=== PATIENT | male | born 1990 | race Caucasian/White ===

== ENCOUNTER 2017-04-19 19:07 | Emergency (ER) | payer MEDICAID, OTHER ==
[~2017-04-19] VITALS: Ht 182.9 cm; Wt 91.0 kg
[~2017-04-19 19:07] MED LIST: ACYC400T2 PO; ACYC800T57 PO; GABA300C16 PO; IBUP-1542 PO; LACR35O OP; PRED20TA PO; PRED50TA PO; TRAM-40 PO; TRAM50TA2 PO
[2017-04-19 19:13] VITALS: Ht 182.9 cm; Wt 91.0 kg
[2017-04-19] MEDS ORDERED: ACETAMINOPHEN 500 MG TAB PO STA (21:19)
[2017-04-19 21:42] LABS: ADD SCAN DIFF NO
[2017-04-19 21:55] LABS: ADD UMIC NO; UR BILIRUBIN (Dip) NEGATIVE (NEGATIVE); UR BLOOD (Dip) NEGATIVE (NEGATIVE); UR CLARITY CLEAR (CLEAR); UR COLOR YELLOW (YELLOW); UR GLUCOSE (Dip) NEGATIVE (NEGATIVE); UR KETONES (Dip) NEGATIVE (NEGATIVE); UR LEUKOCYTE ESTERASE (Dip) NEGATIVE (NEGATIVE); UR NITRITE (Dip) NEGATIVE (NEGATIVE); UR TOTAL PROTEIN (Dip) NEGATIVE (NEGATIVE); UR UROBILINOGEN (Dip) 0.2 E.U./dL (0.1-1.0)
[2017-04-19 22:00] LABS: BASOPHIL # 0.1 10^3/ul (0.0-0.1); BASOPHILS % 0.3 % (0.0-2.0); HEMATOCRIT 41.8 % (42.0-52.0); HEMOGLOBIN 15.2 g/dl (14.0-18.0); LYMPHOCYTES # 0.8 10^3/ul (0.8-2.9); LYMPHOCYTES % 3.9 % (15.0-51.0); MEAN CORPUSCULAR HEMOGLOBIN 30.4 pg (29.0-33.0); MEAN CORPUSCULAR HGB CONC 36.4 g/dl (32.0-37.0); MEAN CORPUSCULAR VOLUME 83.6 fl (82.0-101.0); MEAN PLATELET VOLUME 11.1 fl (7.4-10.4); MONOCYTE # 0.9 10^3/ul (0.3-0.9); MONOCYTES % 4.7 % (0.0-11.0); NEUTROPHIL # 17.8 10^3/ul (1.6-7.5); NEUTROPHILS % 90.5 % (39.0-77.0); PLATELET COUNT 237 10^3/UL (140-415); RED CELL DISTRIBUTION WIDTH 12.1 % (11.5-14.5); WHITE BLOOD COUNT 19.6 10^3/ul (4.8-10.8)
[2017-04-19] MEDS ORDERED: SOD CHLORIDE 0.9% 1,000 ML IV ONE (22:00)
[2017-04-19 22:03] LABS: ALBUMIN 5.4 g/dl (3.3-4.9); ALBUMIN/GLOBULIN RATIO 1.86; BILIRUBIN,INDIRECT 1.5 mg/dl (0-1.1); BILIRUBIN,TOTAL 1.5 mg/dl (0.2-1.3); CALCIUM 9.6 mg/dl (8.4-10.2); CREATININE 1.28 mg/dl (0.61-1.24); POTASSIUM 3.7 mmol/L (3.5-5.1); TOTAL PROTEIN 8.3 g/dl (6.1-8.1)
--- NOTE | 2017-04-19 22:18 | ERD ---
ER Documentation Chief Complaint Date/Time DATE: 04/19/17 TIME: 22:15 Chief Complaint FEVER WITH BODY ACHES AND SORE THROAT, POOR APPETITE STARTING TODAY HPI This is a 26-year-old male presents to the emergency room for evaluation of fever, body aches and sore throat. Patient states he has had a poor appetite over the past 2 days. He has not taken any medication and came to the ER for evaluation. He denies any cough, or any chills or any nausea vomiting or diarrhea associated with his symptoms. The patient denies any previous medical conditions denies any recent travel. ROS All systems reviewed and are negative except as per history of present illness. Medications Home Meds Discontinued Scripts Tramadol Hcl* (Ultram*) 50 Mg Tablet, 50 MG PO Q6H Y for PAIN, #20 TAB Prov:PARMINDER ZACARIAS PA-C 10/02/16 Acyclovir* (Acyclovir*) 400 Mg Tablet, 400 MG PO 5 TIMES DAILY, #10 TAB Prov:PARMINDER ZACARIAS PA-C 10/02/16 Prednisone* (Prednisone*) 50 Mg Tablet, 50 MG PO DAILY for 5 Days, TAB Prov:PARMINDER ZACARIAS PA-C 10/02/16 Gabapentin* (Gabapentin*) 300 Mg Capsule, 300 MG PO QHS, #30 CAP Prov:BRENT WEBSTER NP 09/19/15 Ibuprofen* (Ibuprofen*) 600 Mg Tablet, 600 MG PO Q6H Y for pa, #30 TAB Prov:BRENT WEBSTER NP 09/19/15 Tramadol HCl (Tramadol HCl) 50 Mg Tab, 50 MG PO Q4 Y for PAIN, #20 TAB Prov:YOLA RAUSCH DO 09/09/15 Mineral Oil/Lanolin Oil (Lacri-Lube) 3.5 Gm Oint, 1 APPLIC OP TID for 10 Days, EA Prov:YOLA RAUSCH DO 09/09/15 Prednisone (Prednisone) 20 Mg Tablet, 20 MG PO DAILY for 7 Days, TAB Prov:YOLA RAUSCH DO 09/09/15 Acyclovir* (Zovirax*) 800 Mg Tablet, 400 MG PO 5 TIMES DAILY for 10 Days, TAB Prov:YOLA RAUSCH DO 09/09/15 Allergies Allergies: Coded Allergies: No Known Allergies (Verified Allergy, Mild, 04/19/17) PMhx/Soc Medical and Surgical Hx: pt denies Surgical Hx History of Surgery: No Anesthesia Reaction: No Hx Neurological Disorder: Yes (BELLS PALSY) Hx Respiratory Disorders: No Hx Cardiac Disorders: No Hx Psychiatric Problems: No Hx Miscellaneous Medical Probl: No Hx Alcohol Use: Yes Hx Substance Use: No Hx Tobacco Use: No Smoking Status: Never smoker Physical Exam Vitals Vital Signs Date Time Temp Pulse Resp B/P Pulse Ox O2 Delivery O2 Flow Rate FiO2 04/19/17 19:13 103.3 108 18 134/63 100 Physical Exam INITIAL VITAL SIGNS: Reviewed by me GENERAL: The patient is well developed and appropriate for usual state of health in no apparent distress HEENT: Pharyngeal erythema, pupils equal, round, and reactive to light. EOMI. There is no scleral icterus. NECK: C-spine is soft and supple, there is no meningismus. There is no cervical lymphadenopathy. LUNGS: Clear to auscultation bilaterally. There are no rales, wheezes or rhonchi. HEART: Tachycardic, no murmurs, clicks, rubs or gallops. ABDOMEN: Soft, non-tender, non-distended. There are bowel sounds in all four quadrants. No rebound or guarding. EXTREMITIES: There is no peripheral cyanosis or edema. No focal swelling or erythema. NEUROLOGICAL: The patient moves all four extremities with 5/5 strength. Cranial nerves II - XII are intact. Normal gait. Alert and oriented SKIN: There is no apparent rash or petechiae. HEME/LYMPHATIC: There is no evidence of excessive bruising or lymphedema. PSYCHIATRIC: The patient does not appear anxious or depressed. Result Diagram: 04/19/17212904/19/172129 Results 24 hrs Laboratory Tests Test 04/19/17 21:30 White Blood Count 19.610^3/ul Red Blood Count 5.0010^6/ul Hemoglobin 15.2g/dl Hematocrit 41.8% Mean Corpuscular Volume 83.6fl Mean Corpuscular Hemoglobin 30.4pg Mean Corpuscular Hemoglobin Concent 36.4g/dl Red Cell Distribution Width 12.1% Platelet Count 60242^3/UL Mean Platelet Volume 11.1fl Neutrophils % 90.5% Lymphocytes % 3.9% Monocytes % 4.7% Eosinophils % 0.0% Basophils % 0.3% Nucleated Red Blood Cells % 0.0/100WBC Neutrophils # 17.810^3/ul Lymphocytes # 0.810^3/ul Monocytes # 0.910^3/ul Eosinophils # 0.010^3/ul Basophils # 0.110^3/ul Nucleated Red Blood Cells # 0.010^3/ul Urine Color YELLOW Urine Clarity CLEAR Urine pH 6.0 Urine Specific [place] 1.010 Urine Ketones NEGATIVE Urine Nitrite NEGATIVE Urine Bilirubin NEGATIVE Urine Urobilinogen 0.2 E.U./dL Urine Leukocyte Esterase NEGATIVE Urine Hemoglobin NEGATIVE Urine Glucose NEGATIVE% Urine Total Protein NEGATIVE Sodium Level 135mmol/L Potassium Level 3.7mmol/L Chloride Level 100mmol/L Carbon Dioxide Level 24mmol/L Anion Gap 15 Blood Urea Nitrogen 11mg/dl Creatinine 1.28mg/dl Glucose Level 130mg/dl Calcium Level 9.6mg/dl Total Bilirubin 1.5mg/dl Direct Bilirubin 0.00mg/dl Indirect Bilirubin 1.5mg/dl Aspartate Amino Transf (AST/SGOT) 23IU/L Alanine Aminotransferase (ALT/SGPT) 40IU/L Alkaline Phosphatase 81IU/L Creatine Kinase 162IU/L Total Protein 8.3g/dl Albumin 5.4g/dl Globulin 2.90g/dl Albumin/Globulin Ratio 1.86 Current Medications Medications (Trade) Dose Ordered Sig/[place] Route PRN Reason Start Time Stop Time Status Last Admin Dose Admin Acetaminophen 1000 mg 1,000 mg ONCE STAT PO 04/19/17 21:19 04/19/17 21:21 DC 04/19/17 21:44 Sodium Chloride (NS) 1,000 ml @ 1,000 mls/hr Q1H ONCE IV 04/19/17 22:00 04/19/17 22:59 04/19/17 21:44 Amoxicillin (Amoxicillin) 500 mg ONCE ONCE PO 04/19/17 22:30 04/19/17 22:31 Procedures/MDM Chest X-ray 1V Interpreted by me: Soft Tissue: No acute abnormalities Bones: No acute abnormalities Mediastinum/Cardiac Silhouette/Lungs: [No acute abnormalities] This 26-year-old male presents to the emergency room for evaluation of fever, chills, sore throat and body aches. When I evaluated this patient he did have a fever, he was tachycardic, and upon my examination patient did have a pharyngeal erythema with no exudate. I did obtain lab work including a chest x- ray. Lab work does show leukocytosis with a neutrophilic predominance. Influenza is negative however the patient's strep swab is positive. The patient was given Tylenol for fever, and he was also given amoxicillin. He will be discharged home at this time with a prescription for Motrin for pain and body aches and fever, and amoxicillin for acute strep pharyngitis. Departure Diagnosis: Primary Impression: Pharyngitis, streptococcal, acute Additional Impressions: Leukocytosis Fever Renal insufficiency Condition: Stable PRISCILA GARCIA DO Apr 19, 2017 22:18
[2017-04-19] MEDS ORDERED: AMOXICILLIN 500 MG CAP PO ONE (22:30)
--- NOTE | 2017-04-19 23:03 | RADRPT ---
PROCEDURE: XR Chest. CLINICAL INDICATION: Fever. TECHNIQUE: Single frontal view of the chest. COMPARISON: None. FINDINGS: The cardiomediastinal silhouette is within normal limits. Mild left lung base atelectasis versus air space disease. The lungs are otherwise clear. No signs of pleural fluid or pneumothorax are seen. T he osseous structures and soft tissues are unremarkable. IMPRESSION: Mild left lung base atelectasis versus airspace disease. RPTAT: [facility] Physician Jessica Date Time Electronically viewed and signed by Physician Jessica on 04/19/2017 22:35 RS/
== END 2017-04-19 22:36 | disposition home or self-care (01) ==
LOC: E/R 19:07
DX: J02.0 Streptococcal pharyngitis (principal); D72.829 Elevated white blood cell count, unspecified; N28.9 Disorder of kidney and ureter, unspecified
CPT/HCPCS: 36415; 71010; 80053; 81003; 82550; 85025; 87400; 87880; J7030; Z7502; Z7610